=== PATIENT | female | born 1990 | race Caucasian/White ===

== ENCOUNTER 2016-08-13 15:32 | Emergency (ER) | payer SELFPAY ==
[~2016-08-13] VITALS: Ht 167.6 cm; Wt 71.7 kg
[~2016-08-13 15:32] MED LIST: NITR100C62 PO
[2016-08-13 15:36] VITALS: BP 116/71
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
--- NOTE | 2016-08-13 16:43 | RAD ---
Left hand radiographs History: Slipped and fell, scaphoid tender. Comparison: None. Findings: PA, lateral, and oblique views of the left hand. No acute fracture or dislocation is identified. No focal soft tissue swelling is seen. Impression: No acute osseous traumatic injury identified.
--- NOTE | 2016-08-13 16:43 | RAD ---
Sacrococcygeal radiographs History: Slip and fall, sacral or coccygeal tenderness. Comparison: None. Findings: Frontal and lateral radiographs of the sacrum and coccyx, 3 images. No acute fracture or malalignment is identified. Impression: No acute osseous traumatic injury identified.
[2016-08-13] MEDS ORDERED: HYDR-971 PO (16:54)
== END 2016-08-13 17:11 | disposition home or self-care (01) ==
LOC: ER 15:32
DX: S30.0XXA Contusion of lower back and pelvis, initial encounter (principal); M25.532 Pain in left wrist; F12.10 Cannabis abuse, uncomplicated; F17.200 Nicotine dependence, unspecified, uncomplicated; W01.0XXA Fall on same level from slipping, tripping and stumbling without subsequent striking against object, initial encounter; Y93.89 Activity, other specified; Y99.8 Other external cause status; Y92.89 Other specified places as the place of occurrence of the external cause
CPT/HCPCS: 29125; 72220; 73130; 81025; 99284-25

== ENCOUNTER 2016-12-21 15:12 | Emergency (ER) | payer OTHER ==
[~2016-12-21] VITALS: Ht 167.6 cm; Wt 65.8 kg
[~2016-12-21 15:12] MED LIST changes: +HYDR-971 PO
[2016-12-21 15:42] LABS: BILIRUBIN,URINE NEGATIVE (NEG); GLUCOSE,URINE NEGATIVE (NEG); NITRITE,URINE POSITIVE (NEG); PROTEIN,URINE 100 mg/dL (NEG-TRACE); UROBILINOGEN,URINE 0.2 mg/dL (0.2 mg/dL)
[2016-12-21] MEDS ORDERED: ONDANSETRON PF 4 MG/2 ML VIAL. IV ONE (15:45)
[2016-12-21] MEDS ORDERED: IV NORMAL SALINE 1000ML BAG 1,000 ML IV ONE (15:45)
[2016-12-21] MEDS ORDERED: KETOROLAC TROMETHAMINE 30 MG/ML INJ. IV ONE (15:45)
--- NOTE | 2016-12-21 15:51 | PHYS DOC ---
Past Medical History Past Medical History: No Pertinent History Past Surgical History: , Tonsillectomy Additional Past Surgical Histo: REMOVED TUBES IN APRIL 2016 Additional Information: 1 ppd Alcohol Use: None Drug Use: Benzodiazepine, Cocaine, Marijuana Adult General Chief Complaint Chief Complaint: DIZZY/LIGHT HEADED HPI HPI Patient is a 26 year old female who presents with nausea and vomiting. Patient reports illness for one week with 2-3 episodes of vomiting daily. She denies fevers or chills, hematemesis, diarrhea or constipation, hematochezia or melena , dysuria or hematuria, vaginal bleeding or discharge. Denies abdominal pain or flank pain. She reports generalized body aches. She reports she feels lightheaded and has had several near syncopal episodes. She reports decreased urine output. She is previously healthy with no known past medical history. PCP is Dr. Johnson. Review of Systems Review of Systems Constitutional: Denies fever or chills Eyes: Denies change in visual acuity HENT: Denies nasal congestion or sore throat Respiratory: Denies cough or shortness of breath Cardiovascular: Denies chest pain or edema GI: Reports nausea and vomiting. Denies abdominal pain, bloody stools or diarrhea : Denies dysuria or hematuria Musculoskeletal: Reports body aches Integument: Denies rash or skin lesions Neurologic: Denies headache, focal weakness or sensory changes Current Medications Current Medications Current Medications Medications (Trade) Dose Ordered Sig/Jamie Start Time Stop Time Status Last Admin Dose Admin Ceftriaxone Sodium 50 ml @ 100 mls/hr 1X ONCE 12/21/16 16:45 12/21/16 17:14 DC 12/21/16 16:47 100 MLS/HR Ketorolac Tromethamine (Toradol) 30 mg 1X ONCE 12/21/16 15:45 12/21/16 15:46 DC 12/21/16 15:56 30 MG Ondansetron HCl (Zofran) 4 mg 1X ONCE 12/21/16 15:45 12/21/16 15:46 DC 12/21/16 15:55 4 MG Sodium Chloride 1,000 ml @ 1,000 mls/hr 1X ONCE 12/21/16 15:45 12/21/16 16:44 DC 12/21/16 15:55 1,000 MLS/HR Allergies Allergies Allergies Coded Allergies Type Severity Reaction Last Updated Verified No Known Drug Allergies 09/17/13 No Physical Exam Physical Exam Constitutional: Well developed, well nourished, no acute distress, non-toxic appearance. HENT: Normocephalic, atraumatic, bilateral external ears normal, oropharynx dry , nose normal. Eyes: PERRLA, EOMI, conjunctiva normal, no discharge. Neck: supple, no stridor. Cardiovascular: RRR, no murmurs, no edema. Lungs & Thorax: LCTAB, no wheezing, no respiratory distress. Abdomen: soft, nontender, nondistended. No focal tenderness with palpation, no masses or pulsatile masses, no rebound or guarding Skin: Warm, dry, no erythema, no rash. Back: No CVA tenderness. Extremities: No tenderness, no edema. No joint erythema/warmth/swelling, no calf tenderness or swelling Neurologic: Alert and oriented X 3, no focal deficits noted. Psychologic: Affect normal, judgement normal, mood normal. Current Patient Data Vital Signs Vital Signs Date Time Temp Pulse Resp B/P (MAP) Pulse Ox O2 Delivery O2 Flow Rate FiO2 12/21/16 17:24 64 92/58 (69) 98 Room Air 12/21/16 15:20 98.1 18 98.1 Lab Values Laboratory Tests Test 12/21/16 14:39 12/21/16 15:15 12/21/16 15:35 POC Urine HCG, Qualitative Hcg negative (Negative) Urine Collection Type Void Urine Color Yellow Urine Clarity Cloudy Urine pH 6.0 Urine Specific [place] 1.020 Urine Protein 100 mg/dL (NEG-TRACE) Urine Glucose (UA) Negative mg/dL (NEG) Urine Ketones (Stick) Negative mg/dL (NEG) Urine Blood Moderate (NEG) Urine Nitrite Positive (NEG) Urine Bilirubin Negative (NEG) Urine Urobilinogen Dipstick 0.2 mg/dL (0.2 mg/dL) Urine Leukocyte Esterase Large (NEG) Urine RBC 3-5 /HPF (0-2) Urine WBC Tntc /HPF (0-4) Urine Squamous Epithelial Cells Many /LPF Urine Bacteria Many /HPF (0-FEW) Urine Mucus Marked /LPF White Blood Count 11.4 x10^3/uL (4.0-11.0) H Red Blood Count 4.41 x10^6/uL (3.50-5.40) Hemoglobin 14.1 g/dL (12.0-15.5) Hematocrit 41.5 % (36.0-47.0) Mean Corpuscular Volume 94 fL (79-100) Mean Corpuscular Hemoglobin 32 pg (25-35) Mean Corpuscular Hemoglobin Concent 34 g/dL (31-37) Red Cell Distribution Width 12.5 % (11.5-14.5) Platelet Count 142 x10^3/uL (140-400) Neutrophils (%) (Auto) 65 % (31-73) Lymphocytes (%) (Auto) 18 % (24-48) L Monocytes (%) (Auto) 17 % (0-9) H Eosinophils (%) (Auto) 0 % (0-3) Basophils (%) (Auto) 0 % (0-3) Neutrophils # (Auto) 7.4 x10^3uL (1.8-7.7) Lymphocytes # (Auto) 2.0 x10^3/uL (1.0-4.8) Monocytes # (Auto) 1.9 x10^3/uL (0.0-1.1) H Eosinophils # (Auto) 0.0 x10^3/uL (0.0-0.7) Basophils # (Auto) 0.0 x10^3/uL (0.0-0.2) Segmented Neutrophils % 53 % (35-66) Band Neutrophils % 7 % (0-9) Lymphocytes % 24 % (24-48) Monocytes % 16 % (0-10) H Platelet Estimate Adequate (ADEQUATE) Sodium Level 138 mmol/L (136-145) Potassium Level 3.5 mmol/L (3.5-5.1) Chloride Level 101 mmol/L (98-107) Carbon Dioxide Level 27 mmol/L (21-32) Anion Gap 10 (6-14) Blood Urea Nitrogen 9 mg/dL (7-20) Creatinine 0.9 mg/dL (0.6-1.0) Estimated GFR (Cockcroft-Gault) 75.1 BUN/Creatinine Ratio 10 (6-20) Glucose Level 130 mg/dL (70-99) H Calcium Level 8.9 mg/dL (8.5-10.1) Total Bilirubin 0.3 mg/dL (0.2-1.0) Aspartate Amino Transferase (AST) 21 U/L (15-37) Alanine Aminotransferase (ALT) 31 U/L (14-59) Alkaline Phosphatase 70 U/L (46-116) Creatine Kinase 83 U/L (26-192) Total Protein 6.9 g/dL (6.4-8.2) Albumin 3.0 g/dL (3.4-5.0) L Albumin/Globulin Ratio 0.8 (1.0-1.7) L Lipase 91 U/L (73-393) Laboratory Tests 12/21/16 15:35 Laboratory Tests 12/21/16 15:35 EKG EKG Interpreted by me: Normal sinus rhythm rate 90, no ST elevation, T waves inverted in leads V1 through V3, no ST depression, normal intervals, no ectopy [ ] Radiology/Procedures Radiology/Procedures [] Course & Med Decision Making Course & Med Decision Making Pertinent Labs and Imaging studies reviewed. (See chart for details) The patient presents with vomiting and lightheadedness. Afebrile, no focal abdominal tenderness. Mild leukocytosis with urinary tract infection. No flank tenderness to suggest pyelonephritis. Gave IV fluids, Zofran, pain medication, and IV Rocephin. She felt better and was comfortable with discharge home. Recommend rest, by mouth hydration with small sips of clear liquid, provided prescription of Zofran to take as needed for nausea. Gave for Cipro for UTI. Urine culture has been sent. Follow-up with primary care physician in 2-3 days. Return to the emergency department for high fever, severe pain, uncontrolled vomiting, any otherwise worsening condition. Discharged home in stable and improved condition. Dragon Disclaimer Dragon Disclaimer This electronic medical record was generated, in whole or in part, using a voice recognition dictation system. Departure Departure Impression: Primary Impression: UTI (urinary tract infection) Disposition: 01 HOME, SELF-CARE Condition: STABLE Referrals: WOLFGANG JOHNSON MD (PCP) Patient Instructions: Nausea and Vomiting, [id number], Urinary Tract Infection, [id number] Additional Instructions: You were seen in the emergency department today for vomiting and you were found to have a urinary tract infection. Please take the prescribed antibiotic. Use Zofran as needed for nausea. Drink small sips of clear liquids to stay hydrated. Follow-up with your primary care doctor in 2-3 days. Return to the emergency department for high fever, severe pain, uncontrolled vomiting, any otherwise worsening condition. Scripts Ondansetron (ZOFRAN ODT) 4 Mg Tab.rapdis 1 TAB SL Q8HRS Y for NAUSEA, #10 TAB Prov: NIRAJ TORRES MD 12/21/16 Ciprofloxacin Hcl (CIPRO) 250 Mg Tablet 1 TAB PO BID, #10 TAB Prov: NIRAJ TORRES MD 12/21/16 NIRAJ TORRES MD Dec 21, 2016 15:51
[2016-12-21 15:53] LABS: BACTERIA,URINE MANY /HPF (0-FEW); SQUAMOUS EPITHELIAL CELL,UR MANY /LPF; WBC,URINE TNTC /HPF (0-4)
[2016-12-21 16:05] LABS: BASO % 0 % (0-3); EOS % 0 % (0-3); HEMATOCRIT 41.5 % (36.0-47.0); HEMOGLOBIN 14.1 g/dL (12.0-15.5); LYMPH % 18 % (24-48); MEAN CORPUSCULAR HEMOGLOBIN 32 pg (25-35); MEAN CORPUSCULAR HGB CONC 34 g/dL (31-37); MEAN CORPUSCULAR VOLUME 94 fL (79-100); MONO % 17 % (0-9); NEUT % 65 % (31-73); PLATELET COUNT 142 x10^3/uL (140-400); RED BLOOD COUNT 4.41 x10^6/uL (3.50-5.40); RED CELL DISTRIBUTION WIDTH 12.5 % (11.5-14.5); WHITE BLOOD COUNT 11.4 x10^3/uL (4.0-11.0)
[2016-12-21 16:27] LABS: CALCIUM 8.9 mg/dL (8.5-10.1); CREATININE 0.9 mg/dL (0.6-1.0); GFR 75.1; POTASSIUM 3.5 mmol/L (3.5-5.1)
[2016-12-21 16:33] LABS: ALBUMIN/GLOBULIN RATIO 0.8 (1.0-1.7); TOTAL BILIRUBIN 0.3 mg/dL (0.2-1.0); TOTAL PROTEIN 6.9 g/dL (6.4-8.2)
[2016-12-21 17:04] LABS: PLT ESTIMATE ADEQUATE (ADEQUATE)
[2016-12-21 17:24] VITALS: BP 92/58
[2016-12-21] MEDS ORDERED: CIPR250T30 PO (17:47)
[2016-12-21] MEDS ORDERED: ONDA4TAB10 SL (17:47)
--- NOTE | 2016-12-24 06:06 | EKG ---
[facility] [address] [place] [address] Test Date: 2016-12-21 Test Time: 15:45:20 Pat Name: LOUISE PINTO Department: Room: Gender: F Senior National Account Manager: : 1990 Requested By: NIRAJ TORRES Order Number: [id number] Reading MD: Measurements Intervals [place] Rate: 90 P: 50 [place]: 158 QRS: 41 QRSD: 86 T: 17 QT: 358 QTc: 442 Interpretive Statements SINUS RHYTHM NO SPECIFIC ECG ABNORMALITIES RI6.01 No previous ECG available for comparison
== END 2016-12-21 17:52 | disposition home or self-care (01) ==
LOC: ER 15:12
DX: N39.0 Urinary tract infection, site not specified (principal); R55 Syncope and collapse; F17.200 Nicotine dependence, unspecified, uncomplicated; F12.10 Cannabis abuse, uncomplicated; F14.10 Cocaine abuse, uncomplicated; F13.10 Sedative, hypnotic or anxiolytic abuse, uncomplicated
CPT/HCPCS: 36415; 80053; 81001; 81025; 82550; 83690; 85007; 85025; 87086; 87186; 93005; 96361; 96365; 96375; 99285; J0690; J1885; J2405; J7030

== ENCOUNTER 2017-06-29 20:59 | Emergency (ER) | payer OTHER ==
[2017-06-29] MEDS: IBUPROFEN 800 MG TABLET. PO ×2 (22:22)
[2017-06-29] MEDS: ACETAMINOPHEN 500 MG TABLET PO ×2 (22:23)
[2017-06-29] MEDS: CEPHALEXIN 250 MG CAPSULE. PO ×2 (22:23)
== END 2017-06-29 22:29 | disposition home or self-care (01) ==
LOC: ER 20:59
DX: N39.0 Urinary tract infection, site not specified (principal); F12.10 Cannabis abuse, uncomplicated; F17.200 Nicotine dependence, unspecified, uncomplicated
CPT/HCPCS: 99284

== ENCOUNTER 2017-10-16 15:07 | Emergency (ER) | payer OTHER ==
[2017-10-16 15:23] LABS: BILIRUBIN,URINE NEGATIVE (NEG); CLARITY,URINE CLEAR; COLOR,URINE YELLOW; GLUCOSE,URINE NEGATIVE (NEG); NITRITE,URINE POSITIVE (NEG); PH,URINE 6.5; PROTEIN,URINE 30 mg/dL (NEG-TRACE); UROBILINOGEN,URINE 0.2 mg/dL (0.2 mg/dL)
[2017-10-16 15:23] LABS: URINE HCG POC HCG NEGATIVE (Negative)
[2017-10-16 15:32] LABS: BACTERIA,URINE MANY /HPF (0-FEW); WBC,URINE >40 /HPF (0-4)
== END 2017-10-16 15:45 | disposition home or self-care (01) ==
LOC: ER 15:45
DX: N39.0 Urinary tract infection, site not specified (principal); F17.200 Nicotine dependence, unspecified, uncomplicated; F12.10 Cannabis abuse, uncomplicated; F15.10 Other stimulant abuse, uncomplicated; [UNRECOGNIZED DIAGNOSIS CODE]
CPT/HCPCS: 81001; 81025; 87086; 99284

== ENCOUNTER 2017-11-01 17:49 | Emergency (ER) | payer OTHER | END 2017-11-01 20:19 | disposition home or self-care (01) | LOC: ER 20:19 | DX: M70.21 Olecranon bursitis, right elbow (principal); L08.89 Other specified local infections of the skin and subcutaneous tissue; F12.10 Cannabis abuse, uncomplicated; F15.10 Other stimulant abuse, uncomplicated; F17.200 Nicotine dependence, unspecified, uncomplicated | CPT/HCPCS: 73080; 99284 ==

== ENCOUNTER 2018-10-12 15:44 | Emergency (ER) | payer OTHER ==
[~2018-10-12] VITALS: Ht 167.6 cm; Wt 69.4 kg
[~2018-10-12 15:44] MED LIST changes: +CEFU500T46 PO; +CEPH-264 PO; +CEPH500C PO; +CIPR250T30 PO; +CLON0.1T12 PO; +HYDR-3164 PO; -HYDR-971 PO; +ONDA4TAB10 SL; +PHEN-444 PO
[2018-10-12 16:13] VITALS: BP 113/70
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
== END 2018-10-12 16:36 | disposition home or self-care (01) ==
LOC: ER 15:44
DX: S69.91XA Unspecified injury of right wrist, hand and finger(s), initial encounter (principal); S70.311A Abrasion, right thigh, initial encounter; Z91.19 Patient's noncompliance with other medical treatment and regimen; V49.88XA Car occupant (driver) (passenger) injured in other specified transport accidents, initial encounter; Y93.89 Activity, other specified; Y92.488 Other paved roadways as the place of occurrence of the external cause; Y99.8 Other external cause status
CPT/HCPCS: 99281; 99283

== ENCOUNTER 2018-12-16 00:15 | Emergency (ER) | payer MEDICAID ==
[~2018-12-16] VITALS: Ht 170.2 cm; Wt 68.0 kg
[2018-12-16 01:54] LABS: BASO % 1 % (0-3); EOS # 0.1 x10^3/uL (0.0-0.7); EOS % 2 % (0-3); HEMATOCRIT 37.9 % (36.0-47.0); HEMOGLOBIN 12.6 g/dL (12.0-15.5); LYMPH # 2.8 x10^3/uL (1.0-4.8); LYMPH % 32 % (24-48); MEAN CORPUSCULAR HEMOGLOBIN 31 pg (25-35); MEAN CORPUSCULAR HGB CONC 33 g/dL (31-37); MEAN CORPUSCULAR VOLUME 92 fL (79-100); MONO # 0.5 x10^3/uL (0.0-1.1); MONO % 6 % (0-9); NEUT # 5.2 x10^3/uL (1.8-7.7); NEUT % 60 % (31-73); PLATELET COUNT 313 x10^3/uL (140-400); RED BLOOD COUNT 4.14 x10^6/uL (3.50-5.40); WHITE BLOOD COUNT 8.8 x10^3/uL (4.0-11.0)
[2018-12-16] MEDS ORDERED: KETOROLAC 15 MG/ML VIAL. IV ONE (02:00)
[2018-12-16] MEDS ORDERED: FAMOTIDINE 20 MG/2 ML VIAL IVP ONE (02:00)
[2018-12-16] MEDS ORDERED: IV NORMAL SALINE 1000ML BAG 1,000 ML IV ONE (02:00)
[2018-12-16] MEDS ORDERED: ONDANSETRON PF 4 MG/2 ML VIAL. IV ONE (02:00)
[2018-12-16 02:07] LABS: BILIRUBIN,URINE NEGATIVE (NEG); CLARITY,URINE CLEAR; COLOR,URINE YELLOW; NITRITE,URINE POSITIVE (NEG); PROTEIN,URINE NEGATIVE (NEG-TRACE)
[2018-12-16 02:14] LABS: CREATININE 0.8 mg/dL (0.6-1.0); GFR 84.8; POTASSIUM 3.6 mmol/L (3.5-5.1)
[2018-12-16 02:15] LABS: ALBUMIN 3.1 g/dL (3.4-5.0); ALBUMIN/GLOBULIN RATIO 0.9 (1.0-1.7); MAGNESIUM 2.1 mg/dL (1.8-2.4); TOTAL BILIRUBIN 0.1 mg/dL (0.2-1.0); TOTAL PROTEIN 6.7 g/dL (6.4-8.2)
[2018-12-16 02:17] LABS: BARBITURATES NEG (NEG); BENZODIAZEPINES NEG (NEG); CANNABINOIDS POS (NEG); COCAINE NEG (NEG); METHADONE NEG (NEG); OPIATES NEG (NEG); PHENCYCLIDINE NEG (NEG)
[2018-12-16 02:21] LABS: AMPHETAMINE/METHAMPHETAMINE POS (NEG)
[2018-12-16 02:29] LABS: SQUAMOUS EPITHELIAL CELL,UR MOD /LPF
[2018-12-16 02:30] LABS: BACTERIA,URINE MANY /HPF (0-FEW); RBC,URINE 0 /HPF (0-2); WBC,URINE 20-40 /HPF (0-4)
[2018-12-16] MEDS ORDERED: ONDA4TAB12 PO (03:00)
[2018-12-16] MEDS ORDERED: CEPH-264 PO (03:00)
[2018-12-16] MEDS ORDERED: FAMO-63 PO (03:00)
--- NOTE | 2018-12-16 03:00 | PHYS DOC ---
Past Medical History Past Medical History: Depression, Other Additional Past Medical Histor: manic depression Past Surgical History: , Tonsillectomy, Tubal ligation Additional Past Surgical Histo: REMOVED TUBES IN APRIL 2016 Smoking: Cigarettes Alcohol Use: None Drug Use: Marijuana, Methamphetamine Adult General Chief Complaint Chief Complaint: ABDOMINAL PAIN HPI HPI 28-year-old female presents via EMS with report of nausea and vomiting with associated chills and headache �1 day. Patient does report use of methamphetamines yesterday. Denies trauma. Denies known sick contacts. Denies . Reports increased urinary frequency. Review of Systems Review of Systems Constitutional: Reports subjective fever or chills Eyes: Denies redness or eye pain HENT: Denies nasal congestion or sore throat Respiratory: Denies cough or shortness of breath Cardiovascular: Denies chest pain or palpitations GI: Denies abdominal pain; reports nausea and vomiting /MUTUEL CLERK: Denies hematuria or ; reports increased urinary frequency Musculoskeletal: Denies back pain or joint pain Integument: Denies rash or skin lesions Neurologic: Denies headache, focal weakness or sensory changes Complete systems were reviewed and found to be within normal limits, except as documented in this note. Current Medications Current Medications Current Medications Medications (Trade) Dose Ordered Sig/Jamie Start Time Stop Time Status Last Admin Dose Admin Ceftriaxone Sodium (Rocephin) 1 gm 1X ONCE 12/16/18 03:30 12/16/18 03:31 DC 12/16/18 03:52 1 GM Famotidine (Pepcid Vial) 20 mg 1X ONCE 12/16/18 02:00 12/16/18 02:01 DC Ketorolac Tromethamine (Toradol 15mg Vial) 15 mg 1X ONCE 12/16/18 02:00 12/16/18 02:01 DC Ondansetron HCl (Zofran) 4 mg 1X ONCE 12/16/18 02:00 12/16/18 02:01 DC Sodium Chloride 1,000 ml @ 1,000 mls/hr 1X ONCE 12/16/18 02:00 12/16/18 02:59 DC 12/16/18 02:09 1,000 MLS/HR Allergies Allergies Allergies Coded Allergies Type Severity Reaction Last Updated Verified No Known Drug Allergies 09/17/13 No Physical Exam Physical Exam Constitutional: Well developed, well nourished, no acute distress, non-toxic appearance HENT: Normocephalic, atraumatic, oropharynx moist Eyes: PERRL, EOMI, conjunctiva normal, no discharge Neck: Normal range of motion, no tenderness, supple, no meningeal signs Cardiovascular: Heart rate normal, regular rhythm Lungs & Thorax: Bilateral breath sounds clear to auscultation, no wheezing Abdomen: Soft, no tenderness/rebound tenderness/guarding/distention Skin: Warm, dry, no erythema, no rash Extremities: No tenderness, ROM intact, no edema Neurologic: Alert and oriented X 3, motor function intact, sensation intact, no focal deficits noted Psychologic: Affect normal, judgement normal Current Patient Data Vital Signs Vital Signs Date Time Temp Pulse Resp B/P (MAP) Pulse Ox O2 Delivery O2 Flow Rate FiO2 12/16/18 06:00 66 20 90/58 (69) 99 Room Air 12/16/18 00:38 97.2 97.2 Lab Values Laboratory Tests Test 12/16/18 01:45 12/16/18 01:50 12/16/18 01:57 White Blood Count 8.8 x10^3/uL (4.0-11.0) Red Blood Count 4.14 x10^6/uL (3.50-5.40) Hemoglobin 12.6 g/dL (12.0-15.5) Hematocrit 37.9 % (36.0-47.0) Mean Corpuscular Volume 92 fL (79-100) Mean Corpuscular Hemoglobin 31 pg (25-35) Mean Corpuscular Hemoglobin Concent 33 g/dL (31-37) Red Cell Distribution Width 13.0 % (11.5-14.5) Platelet Count 313 x10^3/uL (140-400) Neutrophils (%) (Auto) 60 % (31-73) Lymphocytes (%) (Auto) 32 % (24-48) Monocytes (%) (Auto) 6 % (0-9) Eosinophils (%) (Auto) 2 % (0-3) Basophils (%) (Auto) 1 % (0-3) Neutrophils # (Auto) 5.2 x10^3/uL (1.8-7.7) Lymphocytes # (Auto) 2.8 x10^3/uL (1.0-4.8) Monocytes # (Auto) 0.5 x10^3/uL (0.0-1.1) Eosinophils # (Auto) 0.1 x10^3/uL (0.0-0.7) Basophils # (Auto) 0.0 x10^3/uL (0.0-0.2) Sodium Level 142 mmol/L (136-145) Potassium Level 3.6 mmol/L (3.5-5.1) Chloride Level 104 mmol/L (98-107) Carbon Dioxide Level 29 mmol/L (21-32) Anion Gap 9 (6-14) Blood Urea Nitrogen 14 mg/dL (7-20) Creatinine 0.8 mg/dL (0.6-1.0) Estimated GFR (Cockcroft-Gault) 84.8 BUN/Creatinine Ratio 18 (6-20) Glucose Level 115 mg/dL (70-99) H Calcium Level 9.0 mg/dL (8.5-10.1) Magnesium Level 2.1 mg/dL (1.8-2.4) Total Bilirubin 0.1 mg/dL (0.2-1.0) L Aspartate Amino Transferase (AST) 9 U/L (15-37) L Alanine Aminotransferase (ALT) 20 U/L (14-59) Alkaline Phosphatase 91 U/L (46-116) Total Protein 6.7 g/dL (6.4-8.2) Albumin 3.1 g/dL (3.4-5.0) L Albumin/Globulin Ratio 0.9 (1.0-1.7) L Lipase 53 U/L (73-393) L Ethyl Alcohol Level < 10 mg/dL (0-10) Urine Collection Type U cath Urine Color Yellow Urine Clarity Clear Urine pH 6.0 Urine Specific Blanchard 1.020 Urine Protein Negative mg/dL (NEG-TRACE) Urine Glucose (UA) Negative mg/dL (NEG) Urine Ketones (Stick) Negative mg/dL (NEG) Urine Blood Negative (NEG) Urine Nitrite Positive (NEG) Urine Bilirubin Negative (NEG) Urine Urobilinogen Dipstick 1.0 mg/dL (0.2 mg/dL) Urine Leukocyte Esterase Moderate (NEG) Urine RBC 0 /HPF (0-2) Urine WBC 20-40 /HPF (0-4) Urine Squamous Epithelial Cells Mod /LPF Urine Bacteria Many /HPF (0-FEW) Urine Mucus Slight /LPF Urine Opiates Screen Neg (NEG) Urine Methadone Screen Neg (NEG) Urine Barbiturates Neg (NEG) Urine Phencyclidine Screen Neg (NEG) Urine Amphetamine/Methamphetamine Pos (NEG) Urine Benzodiazepines Screen Neg (NEG) Urine Cocaine Screen Neg (NEG) Urine Cannabinoids Screen Pos (NEG) Urine Ethyl Alcohol Neg (NEG) POC Urine HCG, Qualitative Hcg negative (Negative) Laboratory Tests 12/16/18 01:45 Laboratory Tests 12/16/18 01:45 Microbiology 12/16/18 Urine Culture - Final, Complete 12/16/18 Urine Culture Result 1 (ANDREWS) - Final, Complete 12/16/18 Antimicrobic Susceptibility - Final, Complete EKG EKG [] Radiology/Procedures Radiology/Procedures [] Course & Med Decision Making Course & Med Decision Making Pertinent Lab studies reviewed. (See chart for details) Patient presents with report of nausea/vomiting and subjective fever/chills times one day. History of recent methamphetamine abuse. Patient also complaining of headache. Patient is neurologically intact. Labs obtained and posted to chart. IV fluid hydration provided. UA with signs of infection. Empiric antibiotics initiated. Symptomatic treatment provided with interval improvement of symptoms. Patient stable for discharge with outpatient follow-up with PCP. Discussed findings and plan with patient, who acknowledges understanding and agreement. Dragon Disclaimer Dragon Disclaimer This electronic medical record was generated, in whole or in part, using a voice recognition dictation system. Departure Departure Impression: Primary Impression: UTI (urinary tract infection) Additional Impressions: Methamphetamine abuse Nausea & vomiting Disposition: 01 HOME, SELF-CARE Condition: STABLE Referrals: NO PCP (PCP) Patient Instructions: Methamphetamine Abuse, Complications, Nausea and Vomiting, Utgu-yc-Cylz, Urinary Tract Infection, Sudp-if-Odzz Scripts Cephalexin (KEFLEX) 500 Mg Capsule 500 MG PO TID for 7 Days, #21 CAP Prov: ABRAHAM LA DO 12/16/18 Famotidine (PEPCID) 20 Mg Tablet 20 MG PO BID, #14 TAB Prov: ABRAHAM LA DO 12/16/18 Ondansetron (ONDANSETRON ODT) 4 Mg Tab.rapdis 1 TAB PO PRN Q6-8HRS PRN for NAUSEA, #16 TAB Prov: ABRAHAM LA DO 12/16/18 Problem Qualifiers Primary Impression: UTI (urinary tract infection) Urinary tract infection type: acute cystitis Hematuria presence: without hematuria Qualified Codes: N30.00 - Acute cystitis without hematuria Additional Impressions: Nausea & vomiting Vomiting type: unspecified Vomiting Intractability: intractable Qualified Codes: R11.2 - Nausea with vomiting, unspecified ABRAHAM LA DO Dec 16, 2018 03:00
[2018-12-16] MEDS ORDERED: cefTRIAXone IV Push 1 GM VIAL. IVP ONE (03:30)
[2018-12-16 06:00] VITALS: BP 90/58
== END 2018-12-16 06:30 | disposition home or self-care (01) ==
LOC: ER 00:15
DX: N30.00 Acute cystitis without hematuria (principal); R11.2 Nausea with vomiting, unspecified; R51 Headache; F15.20 Other stimulant dependence, uncomplicated; Z98.890 Other specified postprocedural states; Z98.51 Tubal ligation status; Z90.89 Acquired absence of other organs
CPT/HCPCS: 36415; 80053; 80307; 81001; 81025; 83690; 83735; 85025; 87086; 87186; 96361; 96374; 99284; G0480; J0696; J7030

== ENCOUNTER 2019-05-07 13:02 | Emergency (ER) | payer MEDICAID ==
[~2019-05-07] VITALS: Ht 167.6 cm; Wt 69.4 kg
[~2019-05-07 13:02] MED LIST changes: +FAMO-63 PO; +ONDA4TAB12 PO
[2019-05-07 14:08] VITALS: BP 109/70
[2019-05-07] MEDS ORDERED: FLUORESCEIN OPHTH TEST STRIP. OD ONE (14:15)
[2019-05-07] MEDS ORDERED: MORPHINE SULFATE 4 MG/ML VIAL. IV/SQ PRN (14:15)
[2019-05-07] MEDS ORDERED: ONDANSETRON PF 4 MG/2 ML VIAL. IV ONE (14:15)
[2019-05-07] MEDS ORDERED: TETRACAINE 0.5% OPHTH SOLUTION 4ML BOTTLE. OD ONE (14:15)
[2019-05-07] MEDS ORDERED: DIPHTH,PERTUSS(ACELL),TET TOX 0.5 ML DISP.SYRIN. VAX IM ONE (14:15)
[2019-05-07 14:28] LABS: BILIRUBIN,URINE NEGATIVE (NEG); CLARITY,URINE CLOUDY; COLOR,URINE YELLOW; NITRITE,URINE POSITIVE (NEG); PROTEIN,URINE NEGATIVE (NEG-TRACE); UROBILINOGEN,URINE 0.2 mg/dL (0.2 mg/dL)
[2019-05-07] MEDS ORDERED: IOHEXOL 300 MG/ML 100ML VIAL. IV ONE (14:30)
[2019-05-07 14:36] LABS: BARBITURATES NEG (NEG); BENZODIAZEPINES NEG (NEG); CANNABINOIDS POS (NEG); COCAINE NEG (NEG); METHADONE NEG (NEG); OPIATES NEG (NEG); PHENCYCLIDINE NEG (NEG)
[2019-05-07 14:37] LABS: AMPHETAMINE/METHAMPHETAMINE POS (NEG)
[2019-05-07 14:44] LABS: SQUAMOUS EPITHELIAL CELL,UR MOD /LPF
[2019-05-07 14:45] LABS: BACTERIA,URINE MANY /HPF (0-FEW); RBC,URINE OCC /HPF (0-2); WBC,URINE >40 /HPF (0-4)
[2019-05-07] MEDS ORDERED: CONTRAST GIVEN. MC PRN (14:45)
[2019-05-07 14:56] LABS: BASO # 0.1 x10^3/uL (0.0-0.2); BASO % 1 % (0-3); EOS # 0.2 x10^3/uL (0.0-0.7); EOS % 2 % (0-3); HEMOGLOBIN 15.3 g/dL (12.0-15.5); LYMPH # 2.5 x10^3/uL (1.0-4.8); LYMPH % 22 % (24-48); MEAN CORPUSCULAR HEMOGLOBIN 31 pg (25-35); MEAN CORPUSCULAR HGB CONC 33 g/dL (31-37); MEAN CORPUSCULAR VOLUME 94 fL (79-100); MONO # 0.9 x10^3/uL (0.0-1.1); MONO % 8 % (0-9); NEUT # 7.8 x10^3/uL (1.8-7.7); NEUT % 68 % (31-73); PLATELET COUNT 316 x10^3/uL (140-400); RED BLOOD COUNT 4.87 x10^6/uL (3.50-5.40); RED CELL DISTRIBUTION WIDTH 12.6 % (11.5-14.5); WHITE BLOOD COUNT 11.4 x10^3/uL (4.0-11.0)
[2019-05-07 15:06] LABS: CREATININE 0.7 mg/dL (0.6-1.0); GFR 98.9; POTASSIUM 4.3 mmol/L (3.5-5.1); PROTHROMBIN TIME PATIENT 12.3 SEC (11.7-14.0)
[2019-05-07 15:12] LABS: ALBUMIN 3.6 g/dL (3.4-5.0); TOTAL BILIRUBIN 0.3 mg/dL (0.2-1.0); TOTAL PROTEIN 7.2 g/dL (6.4-8.2)
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
== END 2019-05-07 17:18 | disposition home or self-care (01) ==
LOC: ER 13:02
DX: S06.0X9A Concussion with loss of consciousness of unspecified duration, initial encounter (principal); S05.01XA Injury of conjunctiva and corneal abrasion without foreign body, right eye, initial encounter; Z59.0 Homelessness; F12.10 Cannabis abuse, uncomplicated; F15.10 Other stimulant abuse, uncomplicated; F32.9 Major depressive disorder, single episode, unspecified; V49.59XA Passenger injured in collision with other motor vehicles in traffic accident, initial encounter; Y93.89 Activity, other specified; Y92.488 Other paved roadways as the place of occurrence of the external cause; Y99.8 Other external cause status
CPT/HCPCS: 36415; 70450; 70486; 71260; 72125; 74177; 80053; 80307; 81001; 85025; 85610; 85730; 86850; 86900; 86901; 90471; 90715; 96374; 96375; 99285; G0480; J2270; J2405; Q9967

== ENCOUNTER 2020-01-20 11:24 | Emergency (ER) | payer MEDICAID ==
[~2020-01-20] VITALS: Ht 167.6 cm; Wt 68.0 kg
[2020-01-20 11:42] VITALS: BP 124/77
[2020-01-20] MEDS ORDERED: CLINDAMYCIN IM 600 MG/4 ML VIAL. IM ONE (11:45)
--- NOTE | 2020-01-20 11:45 | PHYS DOC ---
Past Medical History Past Medical History: Depression, Other Additional Past Medical Histor: manic depression Past Surgical History: , Tonsillectomy, Tubal ligation Additional Past Surgical Histo: REMOVED TUBES IN APRIL 2016 Smoking Status: Current Every Day Smoker Alcohol Use: None Drug Use: Marijuana, Methamphetamine General Adult EDM: Chief Complaint: DENTAL PROBLEM HPI: HPI: Patient is a 29 year old female who presents with a chief complaint of left- sided facial swelling and pain that began overnight. Patient has a history of dental caries but has not followed up with a oral surgeon. Patient was on antibiotics up until 2 weeks ago. Patient denies any fever but has some pain with swallowing. Patient denies any shortness of breath Review of Systems: Review of Systems: Constitutional: Denies fever or chills. [] Eyes: Denies change in visual acuity. [] HENT: Denies nasal congestion or sore throat. [] Respiratory: Denies cough or shortness of breath. [] Cardiovascular: Denies chest pain or edema. [] GI: Denies abdominal pain, nausea, vomiting, bloody stools or diarrhea. [] : Denies dysuria. [] Musculoskeletal: Denies back pain or joint pain. [] Integument: Denies rash. [] Neurologic: Denies headache, focal weakness or sensory changes. [] Endocrine: Denies polyuria or polydipsia. [] Lymphatic: Denies swollen glands. [] Psychiatric: Denies depression or anxiety. [] Heart Score: Risk Factors: Risk Factors: DM, Current or recent (<one month) smoker, HTN, HLP, family history of CAD, obesity. Risk Scores: Score 0 - 3: 2.5% MACE over next 6 weeks - Discharge Home Score 4 - 6: 20.3% MACE over next 6 weeks - Admit for Clinical Observation Score 7 - 10: 72.7% MACE over next 6 weeks - Early Invasive Strategies Current Medications: Current Medications Medications (Trade) Dose Ordered Sig/Jamie Start Time Stop Time Status Last Admin Dose Admin Clindamycin Phosphate (Cleocin Im) 300 mg 1X ONCE 01/20/20 11:45 01/20/20 11:46 Allergies: Allergies: Allergies Coded Allergies Type Severity Reaction Last Updated Verified No Known Drug Allergies 09/17/13 No Physical Exam: PE: Constitutional: Well developed, well nourished, no acute distress, non-toxic appearance. [] HENT: Swelling to the left mandible which is external. Dental caries on the left mandibular molars and premolars with swelling. The floor the mouth is soft and there is no evidence of Ludwigs angina. Eyes: PERRLA, EOMI, conjunctiva normal, no discharge. [] Neck: Submandibular lymphadenopathy more prominent on the left Cardiovascular:Heart rate regular rhythm, peripheral pulse intact, cap refill brisk Lungs & Thorax: Bilateral breath sounds clear Abdomen: Soft nondistended Skin: Warm, dry, no erythema, no rash. [] Abrasions to left forearm Back: No tenderness, no CVA tenderness. [] Extremities: No tenderness, no cyanosis, no clubbing, ROM intact, no edema. [] Neurologic: Alert and oriented X 3, normal motor function, normal sensory function, no focal deficits noted. [] Psychologic: Affect normal, judgement normal, mood normal. [] Current Patient Data: Labs: 29-year-old female presents with mandibular pain and swelling. Patient has significant dental caries with abscess. No evidence of submandibular abscess. Discussed with patient in depth return precautions for submandibular abscess. Patient will be given a shot of clindamycin and a prescription for clindamycin and pain medicine. Patient instructed to follow-up with a dentist soon as possible. Vital Signs: Vital Signs Date Time Temp Pulse Resp B/P (MAP) Pulse Ox O2 Delivery O2 Flow Rate FiO2 01/20/20 11:42 98.4 99 16 124/77 (93) 98 Room Air 98.4 EKG: EKG: [] Radiology/Procedures: Radiology/Procedures: [] Course & Med Decision Making: Course & Med Decision Making Pertinent Labs and Imaging studies reviewed. (See chart for details) [] Dragon Disclaimer: Dragon Disclaimer: This electronic medical record was generated, in whole or in part, using a voice recognition dictation system. Departure Departure Impression: Primary Impression: Dental abscess Disposition: 01 HOME, SELF-CARE Condition: STABLE Referrals: NO PCP (PCP) dental 2-3 days Patient Instructions: Dental Abscess Additional Instructions: EMERGENCY DEPARTMENT GENERAL DISCHARGE INSTRUCTIONS THANK YOU for coming to [facility] Emergency Department (ED) today and trusting us with your care. We trust that you had a positive experience in our Emergency Department. If you wish to speak to the department Management you can contact the grocery department manager at . YOUR FOLLOW UP INSTRUCTIONS ARE FOLLOWS: Do you have a private doctor? If you do not have a private doctor, please ask for a resource list of physicians or clinics that may be able to assist you with follow up care. The Emergency Physician has interpreted your x-rays. The X-ray specialist will also review them. If there is a change in the findings you will be notified in 48 hours when at all possible. A lab test or lab culture may have been done, your results will be reviewed and you will be notified if you need a change in treatment. ADDITIONAL INSTRUCTIONS AND INFORMATION Your care today has been supervised by a physician who is specially trained in emergency care. Many problems require more than one evaluation for a complete diagnosis and treatment. We recommend that you schedule your follow up appointment as recommended to ensure complete treatment of your illness or injury. If you are unable to obtain follow up care and continue to have a problem, or if your condition worsens we recommend that you return to the ED. We are not able to safely determine your condition over the phone nor are we able to give sound medical advice over the phone. For these safety reasons, if you call for medical advice we will ask you to come to the ED for further evaluation If you have any questions regarding these discharge instructions please call the ED at . SAFETY INFORMATION In the interest of safety, wellness, and injury prevention; we encourage you to wear your seatbelt, if you smoke; quit smoking, and we encourage your family to use protective helmet for bicycling and other sporting events that present an increased risk for head injury. IF YOUR SYMPTOMS WORSEN OR NEW SYMPTOMS DEVELOP, OR YOU HAVE CONCERNS ABOUT YOUR CONDITION; OR IF YOUR CONDITION WORSENS WHILE YOU ARE WAITING FOR YOUR FOLLOW UP APPOINTMENT; EITHER CONTACT YOUR PRIMARY CARE DOCTOR, THE PHYSICIAN WHOSE NAME AND NUMBER YOU WERE GIVEN, OR RETURN TO THE ED IMMEDIATELY. Scripts Clindamycin Hcl (CLINDAMYCIN HCL) 300 Mg Capsule 1 CAP PO QID, #40 CAP Prov: LINDA WATKINS MD 01/20/20 Hydrocodone/Apap 5-325 (NORCO 5-325 TABLET) 1 Each Tablet 1-2 EACH PO PRN Q6HRS PRN for PAIN, #15 as needed for pain Prov: LINDA WATKINS MD 01/20/20 Justicifation of Admission Dx: Justifications for Admission: Justification of Admission Dx: N/A LINDA WATKINS MD Jan 20, 2020 11:45
[2020-01-20] MEDS ORDERED: HYDR-3164 PO (11:52)
[2020-01-20] MEDS ORDERED: CLIN300C8 PO (11:52)
== END 2020-01-20 12:04 | disposition home or self-care (01) ==
LOC: ER 11:24
DX: K04.7 Periapical abscess without sinus (principal); R59.0 Localized enlarged lymph nodes; F17.200 Nicotine dependence, unspecified, uncomplicated
CPT/HCPCS: 96372; 99283; J3490